=== PATIENT | female | born 1960 | race African-American/Black ===

== ENCOUNTER 2019-10-06 19:26 | Emergency (ER) | payer OTHER ==
[~2019-10-06] VITALS: Ht 165.1 cm; Wt 113.4 kg
[2019-10-06 19:37] VITALS: BP 133/78
--- NOTE | 2019-10-06 19:51 | NUR ---
Patient discharged to home in stable condition. Written and verbal after care instructions given. Patient verbalizes understanding of instruction.
== END 2019-10-06 19:51 | disposition home or self-care (01) ==
LOC: ER 19:27
DX: B86 Scabies (principal)